=== PATIENT | female | born 1955 | race American Indian/Alaskan Native ===

== ENCOUNTER 2016-08-02 10:09 | Outpatient (CLI) | payer OTHER ==
--- NOTE | 2016-08-02 12:07 | History and Physical Report ---
History of Present Illness Date of examination: 08/02/16 Chief complaint: lt, breast lesion Medications and Allergies Allergies Allergy/AdvReac Type Severity Reaction Status Date / Time ibuprofen Allergy Rash Unverified 08/24/14 12:47
--- NOTE | 2016-08-02 12:08 | Procedure Note ---
Date of procedure: 08/02/16 Pre-op diagnosis: lt breast lesion Post-op diagnosis: same Procedure: u/s guided bx Findings: solid tissue Anesthesia: local Surgeon: GERONIMO DUNCAN Estimated blood loss: none Pathology: list (lt breast tissue) Specimen disposition: to lab Condition: stable Disposition: same day
--- NOTE | 2016-08-02 12:43 | Ultrasound Report ---
Ultrasound-guided left breast biopsy, clip placement, mammogram: Ultrasound images are compared to this patient's prior exam on April 13, 2016. In the lateral left breast the area of hypoechogenicity with eccentric echogenicity is again identified. On color imaging there does appear to be some flow within the lesion. The lesion is quite small measuring approximately 5 mm. A lateral approach were utilized. The skin was cleansed and 1% lidocaine used for local anesthesia. A 13-gauge sheath was placed through which a 14-gauge disposable Bard biopsy guide was used to take several specimens under ultrasound guidance. A marker was left in place. The entrance site was bandaged. A small cyst in the near location was also aspirated with a 21-gauge needle. A two-view mammogram confirm positioning of the marker. An inhomogeneous collection is identified adjacent to the clip which most likely represents a small hematoma. The patient was discharged with no symptoms and followup instructions were given.
--- NOTE | 2016-08-02 16:50 | Ultrasound Report ---
Ultrasound guided cyst aspiration: This addendum is for billing purposes of the cyst aspiration described in the body of the report. Ultrasound images are compared to this patient's prior exam on April 13, 2016. In the lateral left breast the area of hypoechogenicity with eccentric echogenicity is again identified. On color imaging there does appear to be some flow within the lesion. The lesion is quite small measuring approximately 5 mm. A lateral approach were utilized. The skin was cleansed and 1% lidocaine used for local anesthesia. A 13-gauge sheath was placed through which a 14-gauge disposable Bard biopsy guide was used to take several specimens under ultrasound guidance. A marker was left in place. The entrance site was bandaged. A small cyst in the near location was also aspirated with a 21-gauge needle. A two-view mammogram confirm positioning of the marker. An inhomogeneous collection is identified adjacent to the clip which most likely represents a small hematoma. The patient was discharged with no symptoms and followup instructions were given.
== END 2016-08-02 10:10 | disposition home or self-care (01) ==
LOC: US 10:09
PROVIDERS: ATTEND Nurse Practitioner Family
DX: N60.02 Solitary cyst of left breast (principal)
CPT/HCPCS: 19000; 19083; 88307; G0206

== ENCOUNTER 2017-06-07 08:55 | Outpatient (CLI) | payer OTHER ==
--- NOTE | 2017-06-07 10:50 | Mammography Report ---
BILATERAL MAMMOGRAM: FINDINGS: The breast tissue is heterogeneously dense, which could obscure detection of small masses (approximately 50%-75% glandular). No mass, distortion, suspicious calcification, or skin change is seen. There is a biopsy marker and a small nodule in the upper outer left breast. No significant changes are identified when compared to exams dating back to February 2016. CAD was utilized. IMPRESSION: Negative mammogram. There is no mammographic evidence of malignancy. RECOMMENDATION: Follow-up per ACS guidelines. BI-RADS CATEGORY: 1 = Negative ACR BI-RADS MAMMOGRAPHIC CODES: 0 = Needs additional imaging evaluation; 1 = Negative; 2 = Benign; 3 = Probably benign; 4 = Suspicious; 5 = Malignant; 6 = Known biopsy-proven malignancy COMMENT: 1. Dense breast tissue, i.e., adenosis, fibrocystic changes, etc., may obscure an underlying neoplasm. 2. Approximately 10% of cancers are not detected with mammography. 3. A negative mammography report should not delay biopsy if a clinically suspicious mass is present. COMMENT: Patient follow-up letters are generated in [employer].
--- NOTE | 2017-06-07 10:54 | Mammography Report ---
BONE DENSITY STUDY: Postmenopausal osteoporosis. DEFINITIONS: BMD = Bone Mineral Density T-score = BMD related to mean peak bone mass of young adult (mean expressed in Standard Deviation) Z-score = Age matched BMD expressed in SD World Health Organization (WHO) Diagnostic Criteria Normal T-score > -1 SD Osteopenia T-score between -1 and -2.4 SD Osteoporosis T-score -2.5 SD or below FINDINGS: The weighted average BMD of lumbar spine L1-L4 is 0.921 with a T-score of -1.1. The weighted average BMD of the left hip is 0.754 with a T-score of -1.5. The BMD of the femoral neck is 0.594 with a T. value score of -2.3. When compared to her prior examination in February 2016 the overall BMD of the lumbar spine and left hip have generally improved. IMPRESSION: The patient's average T-score is diagnostic for osteopenia and average relative risk for fracture. NOTE: BMD is not the only risk factor for fracture; also consider factors such as the patient's age, risk of falling, previous osteoporotic fracture, family history of osteoporotic fractures, current smoker, and low body weight. Everett's triangle is a region of interest in femur, predominantly of trabecular bone. It is not a true anatomic site, and [facility] does not recommend its use clinically.
== END 2017-06-07 08:56 | disposition home or self-care (01) ==
LOC: MAMMO 08:55
PROVIDERS: ATTEND Nurse Practitioner Family
DX: Z12.31 Encounter for screening mammogram for malignant neoplasm of breast (principal); M81.0 Age-related osteoporosis without current pathological fracture; M85.88 Other specified disorders of bone density and structure, other site; Z78.0 Asymptomatic menopausal state
CPT/HCPCS: 77067; 77080

== ENCOUNTER 2018-07-02 09:53 | Outpatient (CLI) | payer OTHER ==
--- NOTE | 2018-07-02 12:45 | Mammography Report ---
Bilateral mammogram: Compared to 06/07/17 and 02/22/16. CAD study utilized. Findings: Heterogeneous breast parenchyma bilaterally. There is a focal ill-defined density noted at upper outer posterior left breast. Not clearly identified in the previous study. Biopsy clip upper outer left breast. Benign right breast. Impression: Focal ill-defined density left breast. Recommend spot compression and if necessary sonographic examination. BI-RADS CATEGORY: 0 = Needs additional imaging evaluation ACR BI-RADS MAMMOGRAPHIC CODES: 0 = Needs additional imaging evaluation; 1 = Negative; 2 = Benign; 3 = Probably benign; 4 = Suspicious; 5 = Malignant; 6 = Known biopsy-proven malignancy COMMENT: 1. Dense breast tissue, i.e., adenosis, fibrocystic changes, etc., may obscure an underlying neoplasm. 2. Approximately 10% of cancers are not detected with mammography. 3. A negative mammography report should not delay biopsy if a clinically suspicious mass is present. COMMENT: Patient follow-up letters are generated in [employer].
== END 2018-07-02 09:54 | disposition home or self-care (01) ==
LOC: MAMMO 09:53
PROVIDERS: ATTEND Nurse Practitioner Family
DX: Z12.31 Encounter for screening mammogram for malignant neoplasm of breast (principal)
CPT/HCPCS: 77067

== ENCOUNTER 2018-07-12 12:21 | Outpatient (CLI) | payer OTHER ==
--- NOTE | 2018-07-12 13:09 | Mammography Report ---
LEFT DIGITAL DIAGNOSTIC MAMMOGRAM : 07/12/18 12:21:00 CLINICAL: Recalled for asymmetries. COMPARISON:07/02/18 screening FINDINGS: Additional mammographic views were performed and are negative. IMPRESSION: No mammographic evidence of malignancy. BI-RADS CATEGORY: 2 - - Benign RECOMMENDATION: Routine mammographic screening in one year. ACR BI-RADS MAMMOGRAPHIC CODES: 0 = Needs additional imaging evaluation; 1 = Negative; 2 = Benign; 3 = Probably benign; 4 = Suspicious; 5 = Malignant; 6 = Known biopsy-proven malignancy COMMENT: 1. Dense breast tissue, i.e., adenosis, fibrocystic changes, etc., may obscure an underlying neoplasm. 2. Approximately 10% of cancers are not detected with mammography. 3. A negative mammography report should not delay biopsy if a clinically suspicious mass is present. COMMENT: Patient follow-up letters are generated via our [employer] application.
== END 2018-07-12 12:22 | disposition home or self-care (01) ==
LOC: MAMMO 12:21
PROVIDERS: ATTEND Nurse Practitioner Family
DX: R92.8 Other abnormal and inconclusive findings on diagnostic imaging of breast (principal)

== ENCOUNTER 2019-12-31 09:33 | Outpatient (CLI) | payer MEDICARE, OTHER ==
--- NOTE | 2019-12-31 11:14 | Mammography Report ---
DEXA BONE DENSITY SCAN INDICATION: M85.80Other specified disorders of bone density and structure, un. COMPARISON: 06/07/2017 LUMBAR SPINE (L1-L4): Bone mineral density (BMD) is 0.875 g/cm2. 5% decrease compared to prior examination. T-score is -1.6 (standard deviations of Young Adult mean). Z-score is -0.5 (standard deviations of Age Matched mean). LEFT HIP TOTAL: Bone mineral density (BMD) is 0.713 g/cm2.. 0.5% decrease compared to prior examination. T-score is -1.9 (standard deviations of Young Adult mean). Z-score is -1.0 (standard deviations of Age Matched mean). FRAX ten year fracture risk: Major osteoporotic fracture is 5.3% Hip fracture: 1% IMPRESSION: 1. WHO Classification: Osteopenia. Signer Name: Agapito Sosa MD Signed: 12/31/2019 11:10 AM Workstation Name: [id number]
--- NOTE | 2019-12-31 11:38 | Mammography Report ---
DIGITAL SCREENING MAMMOGRAM WITH CAD, 12/31/2019 INDICATION: Routine screening mammography. ROUTINE TECHNIQUE: Digital bilateral 2D mammography was obtained in the craniocaudal and mediolateral obliq ue projections. This examination was interpreted with the benefit of Computer-Aided Detection analysi s. COMPARISON: 07/02/2018 FINDINGS: Breast Density: The breasts are heterogeneously dense, which may obscure small masses. There is no evidence of dominant mass, suspicious calcifications or architectural distortion in eithe r breast. Old biopsy change again noted in the left breast and a few scattered nodular densities are also again present. IMPRESSION: Follow up recommendation: Routine yearly BI-RADS Category 2: Benign. A "normal" or negative report should not discourage follow up or biopsy of a clinically significant f inding. A written summary of these findings will be mailed to the patient. The patient will be entered into a mammography reporting system which will generate a reminder letter for the patient's next appointmen t at the appropriate interval. The [employer] recommends yearly mammograms starting at age 40 and continuing as l josephine as a woman is in good health. Breast MRI is recommended for women with an approximate 20-25% or greater lifetime risk of breast cancer, including women with a strong family history of breast or ova balaji cancer or who have been treated for Hodgkin's disease. Signer Name: Vlad Ha MD Signed: 12/31/2019 11:34 AM Workstation Name: [id number]
== END 2019-12-31 09:34 | disposition home or self-care (01) ==
LOC: MAMMO 09:33
PROVIDERS: ATTEND Pediatrics
DX: Z12.31 Encounter for screening mammogram for malignant neoplasm of breast (principal); M85.80 Other specified disorders of bone density and structure, unspecified site; M81.0 Age-related osteoporosis without current pathological fracture
CPT/HCPCS: 77067; 77080